=== PATIENT | male | born 1960 | race Caucasian/White ===

== ENCOUNTER 2016-10-27 15:12 | Emergency (ER) | payer OTHER ==
--- NOTE | 2016-10-27 16:25 | ED ---
General Adult HPI - General Chief complaint: Dizziness Stated complaint: dizziness-sent by Dr. Fernandes Seen by Provider: 10/27/16 16:24 Source: patient Mode of arrival: ambulatory Limitations: no limitations - History of Present Illness Initial comments: Meenu is a 56-year-old male who presents to the emergency department from his PCPs office for evaluation of dizzy spells and headaches which have been occurring intermittently for a number of years but have increased in frequency in the past 2 months. She reports that he has episodes in which she feels his vision changes, he loses his peripheral vision, he sometimes sees flashing lights, this can last seconds to minutes and is followed by the development of a severe headache. Patient reports that he used to have these episodes 2-4 times yearly however in the past 2 months he's been having these episodes at least weekly and sometimes more than once a week. She cannot identify any exacerbating or causative factors. He states that he is kept a log of his diet , sleep habits and the frequency of his headaches and has not found any correlation between what he eats or his sleep patterns in the development of headaches. Denies any chest pain, palpitations or shortness of breath during these episodes. Does report he occasionally has similar dizzy spells when he bends over and then stands but the spells are not followed by development of a headache. His primary care doctor today due to the increased frequency of the episodes. She performed an EKG and advised him to come to emergency department for a computed tomography scan of his head and to establish some baseline labs she can refer him to neurology for follow-up. - Related Data Home Medications Medication Instructions Recorded Confirmed No Known Home Medications [No 10/27/16 10/27/16 Known Home Medications] Allergies Allergy/AdvReac Type Severity Reaction Status Date / Time No Known Allergies Allergy Verified 02/06/14 13:52 Review of Systems ROS Statement: Those systems with pertinent positive or pertinent negative responses have been documented in the HPI. ROS Other: All systems not noted in ROS Statement are negative. Constitutional: Denies: fever, chills, weakness Eyes: Reports: vision change (Rashing lites and loss of peripheral vision prior to development of headaches) ENT: Denies: throat pain, hearing loss Respiratory: Denies: cough, dyspnea, wheezes Cardiovascular: Denies: chest pain, palpitations Endocrine: Denies: fatigue Gastrointestinal: Denies: nausea, vomiting Genitourinary: Denies: urgency, dysuria Musculoskeletal: Denies: back pain Skin: Denies: rash, lesions Neurological: Reports: headache, vertigo. Denies: numbness, paresthesias, confusion, abnormal gait Psychiatric: Denies: anxiety, depression Hematological/Lymphatic: Denies: easy bleeding, easy bruising Past Medical History Past Medical History: Coronary Artery Disease (CAD), Hypertension Additional Past Medical History / Comment(s): pacemaker History of Any Multi-Drug Resistant Organisms: None Reported Past Surgical History: Pacemaker Additional Past Surgical History / Comment(s): hand surgery, "steel plate in skull" Past Psychological History: Anxiety Smoking Status: Former smoker Past Alcohol Use History: None Reported Past Drug Use History: None Reported General Exam Limitations: no limitations General appearance: alert, in no apparent distress Head exam: Present: atraumatic, normocephalic, normal inspection Eye exam: Present: normal appearance ENT exam: Present: normal exam, mucous membranes moist Neck exam: Present: normal inspection. Absent: tenderness, meningismus, lymphadenopathy Respiratory exam: Present: normal lung sounds bilaterally. Absent: respiratory distress, wheezes, rales, rhonchi, stridor Cardiovascular Exam: Present: regular rate, normal rhythm, normal heart sounds, other (pacemaker palpable left anterior chest). Absent: systolic murmur, diastolic murmur, rubs, gallop, clicks GI/Abdominal exam: Present: soft, normal bowel sounds. Absent: distended, tenderness, guarding, rebound, rigid Rectal exam: Present: deferred Extremities exam: Present: normal inspection, full ROM, normal capillary refill. Absent: tenderness, pedal edema, joint swelling, calf tenderness Back exam: Present: normal inspection Neurological exam: Present: alert, oriented X3, CN II-XII intact, normal gait. Absent: motor sensory deficit Psychiatric exam: Present: normal affect, normal mood Skin exam: Present: warm, dry, intact, normal color. Absent: rash Course Vital Signs 10/27/16 10/27/16 10/27/16 15:27 18:12 18:56 Temperature 98.4 F 97.6 F 98.1 F Pulse Rate 65 67 Respiratory 17 18 16 Rate Blood Pressure 138/78 124/62 128/74 O2 Sat by Pulse 95 96 Oximetry 10/27/16 19:04 Temperature 98.1 F Pulse Rate 67 Respiratory 16 Rate Blood Pressure 128/74 O2 Sat by Pulse 96 Oximetry EKG Findings - EKG Comments: EKG Findings:: EKG at 16:56 PM. EKG rate is 65, rhythm is sinus, normal axis, normal intervals, AZ 170, QRS 96, QTC 426, no acute ST elevations or depressions. No evidence of acute ischemia or infarction or arrhythmia. Medical Decision Making - Medical Decision Making Patient was seen and evaluated Vital signs were reviewed History was obtained from the patient Patient has not had any symptoms in 3 days, is not acutely experiencing any symptoms that he does complain of a current headache which was not preceded by visual changes Labs, EKG and head CT were ordered Medications for migraine were ordered Labs and CT were unremarkable Patient reported significant improvement in his headache after medications Labs and CT results were discussed with the patient. Advised the patient that there were no acute findings requiring emergent intervention at this time, patient expressed relief at this and agreement with plan for discharge home and follow up with primary care which is already scheduled for early next week, his primary care physician is Jenna did discuss with him the intention to refer him to neurology for further evaluation of migraine headaches. All questions pertaining to there were answered to the best of my ability the patient was discharged home with plan to follow up with primary care next week or return to the emergency department for any acute worsening of his symptoms. - Lab Data Result diagrams: 10/27/16 17:00 10/27/16 17:00 Lab Results 10/27/16 10/27/16 10/27/16 Range/Units 17:00 17:00 17:00 WBC 8.8 (3.8-10.6) k/uL RBC 4.84 (4.30-5.90) m/uL Hgb 15.5 (13.0-17.5) gm/dL Hct 42.9 (39.0-53.0) % MCV 88.7 (80.0-100.0) fL MCH 32.0 (25.0-35.0) pg MCHC 36.1 (31.0-37.0) g/dL RDW 13.4 (11.5-15.5) % Plt Count 191 (150-450) k/uL Neutrophils % 67 % Lymphocytes % 23 % Monocytes % 6 % Eosinophils % 2 % Basophils % 1 % Neutrophils # 5.9 (1.3-7.7) k/uL Lymphocytes # 2.0 (1.0-4.8) k/uL Monocytes # 0.5 (0-1.0) k/uL Eosinophils # 0.2 (0-0.7) k/uL Basophils # 0.1 (0-0.2) k/uL PT 10.6 (9.0-12.0) sec INR 1.0 (<1.2) APTT 23.7 (22.0-30.0) sec Sodium 142 (137-145) mmol/L Potassium 3.8 (3.5-5.1) mmol/L Chloride 106 (98-107) mmol/L Carbon Dioxide 27 (22-30) mmol/L Anion Gap 9 mmol/L BUN 15 (9-20) mg/dL Creatinine 0.99 (0.66-1.25) mg/dL Est GFR (MDRD) Af Amer >60 (>60 ml/min/1.73 sqM) Est GFR (MDRD) Non-Af >60 (>60 ml/min/1.73 sqM) Glucose 117 H (74-99) mg/dL Calcium 8.9 (8.4-10.2) mg/dL Disposition Clinical Impression: Headache Disposition: HOME SELF-CARE Instructions: Migraine Headache (ED), Ocular Migraine (ED) Referrals: Ceci Dias MD [Primary Care Provider] - 1-2 days
[2016-10-27] MEDS ORDERED: DEXAMETHASONE SOD PHOSPHATE 10 MG/ML 1 ML VIAL IV STA (16:40)
[2016-10-27] MEDS ORDERED: METOCLOPRAMIDE 5 MG/ML 2 ML VIAL IVP STA (16:40)
[2016-10-27] MEDS ORDERED: diphenhydrAMINE 50 MG/ML 1 ML VIAL IVP STA (16:40)
[2016-10-27 17:19] LABS: Basophils # (A) 0.1 k/uL (0-0.2); Basophils % (A) 1 %; CH 32.2; CHCM 36.5; Eosinophils # (A) 0.2 k/uL (0-0.7); Eosinophils % (A) 2 %; HCT 42.9 % (39.0-53.0); HDW 2.99; HGB 15.5 gm/dL (13.0-17.5); Luc # (Auto) 0.16; Luc % (Auto) 2; Lymphocytes % (A) 23 %; MCHC 36.1 g/dL (31.0-37.0); MCV 88.7 fL (80.0-100.0); Monocytes # (A) 0.5 k/uL (0-1.0); Monocytes % (A) 6 %; Neutrophils # (A) 5.9 k/uL (1.3-7.7); Neutrophils % (A) 67 %; RBC 4.84 m/uL (4.30-5.90); RDW 13.4 % (11.5-15.5); WBC 8.8 k/uL (3.8-10.6); WBC (Perox) 8.31
[2016-10-27 17:24] LABS: Anion Gap 9 mmol/L; Blood Urea Nitrogen 15 mg/dL (9-20); Calcium 8.9 mg/dL (8.4-10.2); Carbon Dioxide 27 mmol/L (22-30); Chloride 106 mmol/L (98-107); Glucose 117 mg/dL (74-99); Non-African American GFR(MDRD) >60 (>60 ml/min/1.73 sqM); Partial Thromboplastin Time 23.7 sec (22.0-30.0); Potassium 3.8 mmol/L (3.5-5.1); Prothrombin Time 10.6 sec (9.0-12.0); Sodium 142 mmol/L (137-145)
--- NOTE | 2016-10-27 18:21 | CT ---
EXAMINATION TYPE: CT brain wo con DATE OF EXAM: 10/27/2016 COMPARISON: 06/12/2015 HISTORY: Dizziness x years. CT DLP: 1115.00 mGycm Automated exposure control for dose reduction was used. FINDINGS: There is no acute intracranial hemorrhage, mass effect, or midline shift identified. The ventricles and sulci are within normal limits in size. The globes are intact and the visualized sinuses are la nena ar. IMPRESSION: No acute intracranial hemorrhage, mass effect, or midline shift is seen.
[2016-10-27 18:57] VITALS: BP 128/74; PULSE 67; RESP 16; TEMP 98.1
== END 2016-10-27 19:04 | disposition home or self-care (01) ==
LOC: EC 15:12
DX: R51 Headache (principal); R42 Dizziness and giddiness; Z87.891 Personal history of nicotine dependence
CPT/HCPCS: 99284; 96374; 96375 ×2; 36415; 93005; 80048; 85025; 85610; 85730; 70450; J1200; J1100; J2765

== ENCOUNTER → 2016-11-27 | Outpatient (CLI) | payer OTHER ==
--- NOTE | 2016-11-27 19:07 | US ---
EXAMINATION TYPE: US carotid duplex BILAT DATE OF EXAM: 11/27/2016 COMPARISON: CT today and CTA 2012 CLINICAL HISTORY: E78.2 HYPERLIPIDEMIA R51. GANDHI R42. DIZZINESS; prior smoker EXAM MEASUREMENTS: RIGHT: Peak Systolic Velocity (PSV) cm/sec ----- Right CCA: 82.9 ----- Right ICA: 87.7 ----- Right ECA: 112.2 ICA/CCA ratio: 1.1 RIGHT: End Diastole cm/sec ----- Right CCA: 28.5 ----- Right ICA: 29.3 ----- Right ECA: 18.9 LEFT: Peak Systolic Velocity (PSV) cm/sec ----- Left CCA: 97.9 ----- Left ICA: 74.6 ----- Left ECA: 70.7 ICA/CCA ratio: 0.8 LEFT: End Diastole cm/sec ----- Left CCA: 26.7 ----- Left ICA: 16.3 ----- Left ECA: 11.1 VERTEBRALS (direction of flow): Right Vertebral: Antegrade Left Vertebral: Antegrade Mild intimal wall thickening is noted at bilateral carotid bifurcation and PSV is wnl bilaterally. Hi gh bifurcations are noted bilaterally. Incidentally, mixed, isoechoic left thyroid nodule is seen = 0 .6 x 0.5 x 0.6cm. IMPRESSION: There is antegrade flow in the vertebral arteries. The images and measurements suggest 1 0-20% stenosis in both internal carotid arteries. Criteria for Assigning % of Stenosis / Diameter reduction (Estimation based on the indirect measurements of the internal carotid artery velocities (ICA PSV). 1. Normal (no stenosis)=ICA PSV < 125 cm/s: ratio < 2.0: ICA EDV<40 cm/s. 2. Less than 50% stenosis=ICA PSV < 125 cm/s: ratio < 2.0: ICA EDV<40 cm/s. 3. 50 to 69% stenosis=ICA PSV of 125 to 230 cm/s: ration 2.0 ? 4.0: ICA EDV 40-100 cm/s. 4. Greater than 70% stenosis to near occlusion= ICA PSV > 230 cm/s: ratio > 4.0: ICA EDV > 100 cm/s. 5. Near occlusion= ICA PSV velocities may be low or undetectable: variable ratio and ICA EDV. 6. Total occlusion=unable to detect flow.
--- NOTE | 2016-11-27 21:21 | CT ---
EXAMINATION TYPE: CT angio head DATE OF EXAM: 11/27/2016 5:38 PM COMPARISON: NONE HISTORY: Patient complains of dizziness, lightheadedness, and fatigue. CT DLP: 932 mGycm Automated exposure control for dose reduction was used. TECHNIQUE: Performed with IV Contrast, patient injected with 100 mL of Omnipaque 350. There are 3-D post processed images.. FINDINGS: There is normal contrast opacification of the distal internal carotid arteries. There is arterial malissa w in the anterior middle and posterior cerebral arteries. There is bilateral posterior communicating artery flow. There is patency of the vertebrobasilar artery system. Right vertebral artery is larger than the left. There is no evidence of aneurysm or neovascularity. There is no evidence of stenosis. There is normal contrast opacification of the venous sinuses. There is no mass effect. IMPRESSION: NORMAL CT ANGIOGRAM OF THE BRAIN.
== END | disposition home or self-care (01) ==
LOC: RADCTMAIN 16:33
PROVIDERS: ATTEND Family Medicine
DX: R51 Headache (principal); R42 Dizziness and giddiness; E78.2 Mixed hyperlipidemia
CPT/HCPCS: 93880; 70496; Q9967

== ENCOUNTER → 2017-01-03 | Outpatient (CLI) | payer OTHER ==
--- NOTE | 2017-01-03 15:46 | US ---
EXAMINATION TYPE: US thyroid st tissue head/neck DATE OF EXAM: 01/03/2017 COMPARISON: NONE CLINICAL HISTORY: E04.1 Thyroid Nodule. GLAND SIZE: Right Lobe: 5.3 x 1.4 x 1.6 cm Overall Parenchyma: heterogenous Left Lobe: 4.8 x 1.4 x 1.7 cm Overall Parenchyma: heterogeneous Isthmus Thickness: 0.4 cm NODULES RIGHT: # of nodules measured on right: 0 LEFT: # of nodules measured on left: 1 1. 0.7 X 0.6 x 0.6 cm isoechoic solid nodule at the lower pole with well-defined margins; . This n odule is wider than tall and shows intranodular vascularity. Prior size: No previous ISTHMUS: # of nodules measured in the isthmus: 0 Bilateral neck scanned, no evidence of lymphadenopathy. IMPRESSION: 1. There is a single nodule within the left lobe of the thyroid measuring 7 mm. Tissue is somewhat he terogeneous correlate for thyroiditis.
== END | disposition home or self-care (01) ==
LOC: RADUSMAIN 15:12
PROVIDERS: ATTEND Family Medicine
DX: E04.1 Nontoxic single thyroid nodule (principal); E06.9 Thyroiditis, unspecified
CPT/HCPCS: 76536

== ENCOUNTER 2017-05-21 13:57 | Emergency (ER) | payer OTHER ==
--- NOTE | 2017-05-21 16:30 | ED ---
General Adult HPI - General Chief complaint: Extremity Problem,Nontraumatic Stated complaint: thumb swelling Time Seen by Provider: 05/21/17 16:02 Source: patient, RN notes reviewed Mode of arrival: ambulatory Limitations: no limitations - History of Present Illness Initial comments: 57-year-old male presents to the emergency department with a chief complaint of left thumb pain. Patient states she's had this for the past week or so. He states any movement causes pain sometimes it just shoot up. He states thatthe thumb. He denies any trauma or injury to the hand. He denies any redness. He states it does feel swollen and tender. He states he called his doctor was referred here. There's been no other symptoms and the patient. He is otherwise feeling well.Patient denies any recent fever, chills, shortness of breath, chest pain, back pain, abdominal pain, nausea vomiting, numbness or tingling, dysuria or hematuria, constipation or diarrhea, headaches or visual changes, or any other current symptoms. - Related Data Previous Rx's Medication Instructions Recorded Ibuprofen [Motrin] 600 mg PO Q6HR PRN #20 tab 05/21/17 Allergies Allergy/AdvReac Type Severity Reaction Status Date / Time No Known Allergies Allergy Verified 05/21/17 14:56 Review of Systems ROS Statement: Those systems with pertinent positive or pertinent negative responses have been documented in the HPI. ROS Other: All systems not noted in ROS Statement are negative. Past Medical History Past Medical History: Coronary Artery Disease (CAD), Hypertension Additional Past Medical History / Comment(s): pacemaker History of Any Multi-Drug Resistant Organisms: None Reported Past Surgical History: Pacemaker Additional Past Surgical History / Comment(s): hand surgery, "steel plate in skull" Past Psychological History: Anxiety Smoking Status: Former smoker Past Alcohol Use History: None Reported Past Drug Use History: None Reported General Exam - General Exam Comments Initial Comments: General: The patient is awake and alert, in no distress, and does not appear acutely ill. Neck: The neck is supple, there is no tenderness. Cardiovascular: There is a regular rate and rhythm. No murmur, rub or gallop is appreciated. Respiratory: Lungs are clear to auscultation, respirations are non-labored, breath sounds are equal. No wheezes, stridor, rales, or rhonchi. Musculoskeletal: Sensation intact with 2+ pulses throughout the left upper x- ray. Fund motion of left wrist and left hand. Tenderness alongthe left thumb. Minimal swelling no erythema. No fluctuance. Neurological: CN II-XII intact, There are no obvious motor or sensory deficits. Coordination appears grossly intact. Speech is normal. Skin: Skin is warm and dry and no rashes or lesions are noted. Psychiatric: Normal mood and affect. Limitations: no limitations Course Vital Signs 05/21/17 14:54 Temperature 98.4 F Pulse Rate 73 Respiratory 20 Rate Blood Pressure 140/93 O2 Sat by Pulse 98 Oximetry Medical Decision Making - Medical Decision Making 57-year-old male presents for left thumb pain. At this time x-rays reviewed. This time there does not appear to be in acute process. This elicits patient Motrin. We discussed possible etiologies importance of follow-up with hand surgery. We did give him hand surgery time as well as orthopedics on-call. We did discuss shelter. We discussed return parameters and all questions. They stated the Jerad management this plan. All questions have been answered. They will be discharged. - Radiology Data Radiology results: report reviewed, image reviewed Disposition Clinical Impression: Pain of left thumb Disposition: HOME SELF-CARE Condition: Stable Instructions: Finger Sprain (ED) Additional Instructions: Please use medication as discussed. Please follow up with family doctor if symptoms have not improved over the next two days. Please return to the emergency room if your symptoms increase or worsen or for any other concerns. Prescriptions: Ibuprofen [Motrin] 600 mg PO Q6HR PRN #20 tab PRN Reason: Pain Referrals: Ceci Dias MD [Primary Care Provider] - 1-2 days Sim Mark MD [STAFF PHYSICIAN] - 1-2 days Main Thomas DO [Doctor of Osteopathic Medicine] - 1-2 days Time of Disposition: 16:59
--- NOTE | 2017-05-21 16:31 | XR ---
EXAMINATION TYPE: XR hand complete LT DATE OF EXAM: 05/21/2017 CLINICAL HISTORY: pain TECHNIQUE: Frontal, lateral and oblique images of the left hand are obtained. COMPARISON: None. FINDINGS: There is no acute fracture/dislocation evident. The joint spaces appear within normal limi ts. The overlying soft tissue appears unremarkable. IMPRESSION: There is no acute fracture or dislocation. ICD 10 NO FRACTURE, INITIAL EVALUATION
[2017-05-21 17:24] VITALS: BP 132/75; PULSE 80; RESP 16; TEMP 98.7
== END 2017-05-21 17:20 | disposition home or self-care (01) ==
LOC: EC 13:57
DX: M79.645 Pain in left finger(s) (principal); M79.89 Other specified soft tissue disorders; Z87.891 Personal history of nicotine dependence
CPT/HCPCS: 99283

== ENCOUNTER 2017-09-06 15:04 | Emergency (ER) | payer OTHER ==
[2017-09-06 15:17] VITALS: BP 142/77; PULSE 73; RESP 16; TEMP 97.8
--- NOTE | 2017-09-06 15:32 | ED ---
General Adult HPI - General Chief complaint: ENT Stated complaint: Throat Pain Time Seen by Provider: 09/06/17 15:17 Source: patient, RN notes reviewed Mode of arrival: ambulatory Limitations: no limitations - History of Present Illness Initial comments: Patient's a 57-year-old male presenting to the emergency room today with chief complaint of irritation to the base of his throat. Patient states that it started 3 days ago felt similar to a sore throat but location seems to be deeper. He states that this feels a bit better but is not completely gone away and he is worried about it. Patient denies eating anything that seemed like it did not come down the right way. He does admit that it hurts when he swallows. He denies any difficulty swallowing or eating or drinking. He denies any any other complaints. Patient denies any recent fever, chills, shortness of breath, chest pain, back pain, abdominal pain, nausea or vomiting, numbness or tingling , headaches or visual changes, or any other complaints. - Related Data Previous Rx's Medication Instructions Recorded Ibuprofen [Motrin] 600 mg PO Q6HR PRN #20 tab 05/21/17 Allergies Allergy/AdvReac Type Severity Reaction Status Date / Time No Known Allergies Allergy Verified 09/06/17 15:17 Review of Systems ROS Statement: Those systems with pertinent positive or pertinent negative responses have been documented in the HPI. ROS Other: All systems not noted in ROS Statement are negative. Past Medical History Past Medical History: Coronary Artery Disease (CAD), Hypertension Additional Past Medical History / Comment(s): pacemaker History of Any Multi-Drug Resistant Organisms: None Reported Past Surgical History: Pacemaker Additional Past Surgical History / Comment(s): hand surgery, "steel plate in skull" Past Psychological History: Anxiety Smoking Status: Former smoker Past Alcohol Use History: None Reported Past Drug Use History: None Reported General Exam - General Exam Comments Initial Comments: General: The patient is awake and alert, in no distress, and does not appear acutely ill. Eye: Pupils are equal, round and reactive to light, extra-ocular movements are intact. No nystagmus. There is normal conjunctiva bilaterally. No signs of icterus. Ears, nose, mouth and throat: There are moist mucous membranes and no oral lesions. Uvula midline. Patient tolerating oral secretions Neck: The neck is supple, there is no tenderness or JVD. Cardiovascular: There is a regular rate and rhythm. No murmur, rub or gallop is appreciated. Respiratory: Lungs are clear to auscultation, respirations are non-labored, breath sounds are equal. No wheezes, stridor, rales, or rhonchi. Musculoskeletal: Normal ROM, no tenderness. Strength 5/5. Sensation intact. Neurological: A&O x 3. CN II-XII intact, There are no obvious motor or sensory deficits. Coordination appears grossly intact. Speech is normal. Skin: Skin is warm and dry and no rashes or lesions are noted. Psychiatric: Cooperative, appropriate mood & affect, normal judgment. Limitations: no limitations Course Vital Signs 09/06/17 15:15 Temperature 97.8 F Pulse Rate 73 Respiratory 16 Rate Blood Pressure 142/77 O2 Sat by Pulse 96 Oximetry Medical Decision Making - Medical Decision Making Patient's x-rays reviewed are negative. Patient's strep test negative as well. Patient tolerating oral secretions. Has been able eat and drink. Advised may be a viral illness possible gastric reflux. Patient advised follow-up with GI if symptoms persist over the next 2 days. Advised return if symptoms increase worsen. - Lab Data Lab Results 09/06/17 Range/Units 15:35 Group A Strep Rapid Negative (Negative) Disposition Clinical Impression: Sore throat Disposition: HOME SELF-CARE Condition: Good Instructions: Pharyngitis (ED) Additional Instructions: Please follow-up with the GI specialist over the next 2 days as discussed. Please return to emergency room symptoms increase worsen or for any other concerns Is patient prescribed a controlled substance at d/c from ED?: No Referrals: Ceci Dias MD [Primary Care Provider] - 1-2 days Rupesh Aragon MD [STAFF PHYSICIAN] - 1-2 days Time of Disposition: 16:07
--- NOTE | 2017-09-06 15:43 | XR ---
Soft tissue neck HISTORY: Sensation of something stuck in throat 2 views of the neck Degenerative disc changes are present in the visualized spine. Prevertebral soft tissues are normal. No radiopaque foreign body evident. Epiglottis shows a normal appearance in profile. Facet arthropath y changes are present in the cervical spine. Airway is patent. IMPRESSION: No abnormality evident to account for patient's symptoms. Consider CT scan as indicated.
== END 2017-09-06 16:13 | disposition home or self-care (01) ==
LOC: EC 15:04
DX: J02.9 Acute pharyngitis, unspecified (principal); Z87.891 Personal history of nicotine dependence
CPT/HCPCS: 70360; 87081; 87430; 99283

== ENCOUNTER 2019-02-11 14:20 | Emergency (ER) | payer OTHER ==
[2019-02-11 14:27] VITALS: BP 145/94; PULSE 66; RESP 18; TEMP 97.4
[2019-02-11] MEDS ORDERED: ACET/COD 300 MG/30 MG STARTER PACK 6 TAB BTL PO STA (14:41)
[2019-02-11] MEDS ORDERED: KETOROLAC 30 MG/ML 1 ML VIAL IM STA (14:41)
--- NOTE | 2019-02-11 14:54 | ED ---
General Adult HPI - General Chief complaint: Extremity Injury, Upper Stated complaint: IHS-Arm Injury Source: patient Mode of arrival: ambulatory Limitations: no limitations - History of Present Illness Initial comments: Patient is a 58-year-old male presenting to the emergency department with a chief complaint of left arm pain. Patient reports earlier today he was attempting to unload a ladder from a truck when he felt a pop in his left upper arm and developed severe shooting pain. Patient reports limited range of motion with flexion of the left elbow. Patient reports most of the pain is located near the anterior deltoid. Patient denies any numbness or tingling. Patient reports his bicep muscle and has "bubbled up." Patient reports taking [id number] medication minimal improvement. Patient denies any numbness or tingling. - Related Data Previous Rx's Medication Instructions Recorded Ibuprofen [Motrin] 600 mg PO Q6HR PRN #20 tab 05/21/17 Allergies Allergy/AdvReac Type Severity Reaction Status Date / Time No Known Allergies Allergy Verified 02/11/19 14:22 Review of Systems ROS Statement: Those systems with pertinent positive or pertinent negative responses have been documented in the HPI. ROS Other: All systems not noted in ROS Statement are negative. Past Medical History Past Medical History: Coronary Artery Disease (CAD), Hypertension Additional Past Medical History / Comment(s): pacemaker History of Any Multi-Drug Resistant Organisms: None Reported Past Surgical History: Pacemaker Additional Past Surgical History / Comment(s): hand surgery, "steel plate in skull" Past Psychological History: Anxiety Smoking Status: Former smoker Past Alcohol Use History: None Reported Past Drug Use History: None Reported General Exam Limitations: no limitations General appearance: alert, in no apparent distress Head exam: Present: atraumatic, normocephalic, normal inspection Eye exam: Present: normal appearance Pupils: Present: normal accommodation ENT exam: Present: normal exam, mucous membranes moist, normal external ear exam Neck exam: Present: normal inspection, full ROM Respiratory exam: Present: normal lung sounds bilaterally Cardiovascular Exam: Present: regular rate, normal rhythm, normal heart sounds Extremities exam: Present: tenderness (Point tenderness at the proximal rickey chment point of the left biceps tendon.), normal capillary refill, other (+2 ulnar and radial pulses bilaterally.). Absent: normal inspection ("Ball" formation along the anterior aspect of the left upper arm. ), full ROM (Limited range of motion with flexion of the left arm.) Back exam: Present: normal inspection, full ROM Neurological exam: Present: alert, oriented X3 Psychiatric exam: Present: normal affect, normal mood Skin exam: Present: warm, intact, normal color Course Vital Signs 02/11/19 14:22 Temperature 97.4 F L Pulse Rate 66 Respiratory 18 Rate Blood Pressure 145/94 O2 Sat by Pulse 99 Oximetry Medical Decision Making - Medical Decision Making Patient is a 58-year-old male presenting to the emergency department with a chief complaint of left arm pain. Based on physical examination patient appears to have a rupture of the proximal tendon of the left biceps. Patient also has point tenderness along the attachment point of the proximal bicep tendon. No im aging is required at this time. Patient given Toradol, Tylenol 3 starter pack for home. Patient advised about the possible side effects of the Tylenol 3. Patient given a sling. Patient advised to follow-up with orthopedics for further management. Strict return parameters were thoroughly discussed with patient was understanding and agreeable. Case discussed with physician. Disposition Clinical Impression: Rupture of proximal biceps tendon Disposition: HOME SELF-CARE Condition: Stable Instructions (If sedation given, give patient instructions): Repairs of the Biceps and Triceps Tendons (DC) Additional Instructions: Please follow with realty specialist. Please keep arm in a sling. Please take prescribed medication as directed. Is patient prescribed a controlled substance at d/c from ED?: No Referrals: Ceci Dias MD [Primary Care Provider] - 1-2 days Timmy Nazario MD [STAFF PHYSICIAN] - 1-2 days Time of Disposition: 14:57
== END 2019-02-11 15:01 | disposition home or self-care (01) ==
LOC: EC 14:20
DX: S46.212A Strain of muscle, fascia and tendon of other parts of biceps, left arm, initial encounter (principal); I25.10 Atherosclerotic heart disease of native coronary artery without angina pectoris; I10 Essential (primary) hypertension; Z95.0 Presence of cardiac pacemaker; Z87.891 Personal history of nicotine dependence; W22.8XXA Striking against or struck by other objects, initial encounter; Y93.89 Activity, other specified; Y99.0 Civilian activity done for income or pay
CPT/HCPCS: 99283; 96372; J1885

== ENCOUNTER → 2019-06-12 | Outpatient (CLI) | payer OTHER ==
[2019-06-12 17:03] LABS: Basophils % (A) 0 %; Eosinophils # (A) 0.2 k/uL (0-0.7); Eosinophils % (A) 2 %; HGB 16.4 gm/dL (13.0-17.5); Lymphocytes # (A) 2.3 k/uL (1.0-4.8); Lymphocytes % (A) 22 %; MCHC 34.8 g/dL (31.0-37.0); MCV 92.1 fL (80.0-100.0); Monocytes # (A) 0.6 k/uL (0-1.0); Monocytes % (A) 6 %; Neutrophils % (A) 68 %; Platelet Count 193 k/uL (150-450); RBC 5.11 m/uL (4.30-5.90); RDW 13.1 % (11.5-15.5); WBC 10.3 k/uL (3.8-10.6)
[2019-06-12 23:18] LABS: ALT 27 U/L (10-49); AST 32 U/L (14-35)
== END | disposition home or self-care (01) ==
LOC: LABWHC1 16:35
PROVIDERS: ATTEND Psychiatry & Neurology Neurology
DX: G43.109 Migraine with aura, not intractable, without status migrainosus (principal)
CPT/HCPCS: 36415; 84450; 84460; 85025

== ENCOUNTER 2019-09-01 08:04 | Emergency (ER) | payer OTHER ==
[2019-09-01 08:09] VITALS: BP 154/80; PULSE 60; RESP 18; TEMP 97.8
[2019-09-01] MEDS ORDERED: KETOROLAC 60 MG/2 ML VIAL IM STA (08:18)
--- NOTE | 2019-09-01 08:38 | ED ---
General Adult HPI - General Chief complaint: Chest Pain Stated complaint: rib pain Time Seen by Provider: 09/01/19 08:05 Source: patient, RN notes reviewed, old records reviewed Mode of arrival: ambulatory Limitations: no limitations - History of Present Illness Initial comments: This is a 59-year-old male who presents emergency Department complaining of right-sided rib pain. Patient states last night his 60 pound 9-year-old nephew jumped on his back when they were playing and ever since she's been having lateral right rib pain. Patient denies any difficulty breathing shortness of breath per patient states taking a deep breath or coughing makes the pain much worse. Patient denies any anterior chest pain. Patient denies any nausea patient denies any diaphoretic episodes. Patient states he lays still it doesn't hurt but if he touches it or takes a deep breath it is very painful. - Related Data Previous Rx's Medication Instructions Recorded Ibuprofen [Motrin] 600 mg PO Q6HR PRN #20 tab 05/21/17 Ketorolac [Toradol] 10 mg PO Q6HR #15 tab 09/01/19 Allergies Allergy/AdvReac Type Severity Reaction Status Date / Time No Known Allergies Allergy Verified 09/01/19 08:05 Review of Systems ROS Statement: Those systems with pertinent positive or pertinent negative responses have been documented in the HPI. ROS Other: All systems not noted in ROS Statement are negative. Past Medical History Past Medical History: Coronary Artery Disease (CAD), Hypertension Additional Past Medical History / Comment(s): pacemaker History of Any Multi-Drug Resistant Organisms: None Reported Past Surgical History: Pacemaker Additional Past Surgical History / Comment(s): hand surgery, "steel plate in skull" Past Psychological History: Anxiety Smoking Status: Former smoker Past Alcohol Use History: Occasional Past Drug Use History: None Reported General Exam - General Exam Comments Initial Comments: GENERAL: Patient is well-developed and well-nourished. Patient is nontoxic and well- hydrated and is in mild distress. ENT: Neck is soft and supple. No significant lymphadenopathy is noted. Oropharynx is clear. Moist mucous membranes. Neck has full range of motion without eliciting any pain. EYES: The sclera were anicteric and conjunctiva were pink and moist. Extraocular movements were intact and pupils were equal round and reactive to light. Eyelids were unremarkable. PULMONARY: Unlabored respirations. Good breath sounds bilaterally. No audible rales rhonchi or wheezing was noted. CARDIOVASCULAR: There is a regular rate and rhythm without any murmurs gallops or rubs. Patient's tender on the right lateral rib area between ribs 8 and 10 ABDOMEN: Soft and nontender with normal bowel sounds. SKIN: Skin is clear with no lesions or rashes and otherwise unremarkable. NEUROLOGIC: Patient is alert and oriented x3. Cranial nerves II through XII are grossly intact. Motor and sensory are also intact. Normal speech, volume and content. Symmetrical smile. MUSCULOSKELETAL: Normal extremities with adequate strength and full range of motion. No lower extremity swelling or edema. No calf tenderness. LYMPHATICS: No significant lymphadenopathy is noted PSYCHIATRIC: Normal psychiatric evaluation Limitations: no limitations Course Vital Signs 09/01/19 08:06 Temperature 97.8 F Pulse Rate 60 Respiratory 18 Rate Blood Pressure 154/80 O2 Sat by Pulse 97 Oximetry Medical Decision Making - Medical Decision Making Chest x-ray shows no rib fractures or pneumothorax. Disposition Clinical Impression: Rib pain on right side Disposition: HOME SELF-CARE Instructions (If sedation given, give patient instructions): Rib Contusion (ED) Prescriptions: Ketorolac [Toradol] 10 mg PO Q6HR #15 tab Is patient prescribed a controlled substance at d/c from ED?: No Referrals: Ceci Dias MD [Primary Care Provider] - 1-2 days Time of Disposition: 08:45
--- NOTE | 2019-09-01 08:45 | XR ---
EXAMINATION TYPE: XR chest 2V DATE OF EXAM: 09/01/2019 COMPARISON: Chest x-ray June 12, 2015. HISTORY: Chest and right-sided rib pain after injury. Difficulty in breathing. TECHNIQUE: Frontal and lateral views of the chest are obtained. FINDINGS: There is chronic parenchymal change without suspicious focal air space opacity, pleural ef fusion, or pneumothorax seen. The cardiac silhouette size is enlarged with dual lead pacemaker and a therosclerotic aorta. The osseous structures are intact. IMPRESSION: Chronic change and cardiomegaly without acute pulmonary process.
== END 2019-09-01 08:59 | disposition home or self-care (01) ==
LOC: EC 08:04
DX: R07.81 Pleurodynia (principal); R06.09 Other forms of dyspnea; I25.10 Atherosclerotic heart disease of native coronary artery without angina pectoris; Z87.891 Personal history of nicotine dependence; Z95.0 Presence of cardiac pacemaker
CPT/HCPCS: 71046; 99284; 96372; J1885

== ENCOUNTER 2020-02-20 11:19 | Observation (INO) | payer OTHER ==
[2020-02-20] MEDS ORDERED: IPRATROPIUM-ALBUTEROL 3 ML NEB INHALATION STA (12:41)
--- NOTE | 2020-02-20 13:24 | XR ---
EXAMINATION TYPE: XR chest 2V DATE OF EXAM: 02/20/2020 COMPARISON: R chest x-ray 09/01/2019 HISTORY: Difficulty breathing TECHNIQUE: Frontal and lateral views of the chest are obtained. FINDINGS: There is no focal air space opacity, pleural effusion, or pneumothorax seen. The cardiac silhouette size is within normal limits. The osseous structures are intact. IMPRESSION: No acute cardiopulmonary process. Stable chest x-ray
[2020-02-20 13:25] LABS: Basophils # (A) 0.1 k/uL (0-0.2); Basophils % (A) 1 %; Eosinophils # (A) 0.6 k/uL (0-0.7); Eosinophils % (A) 7 %; HCT 47.1 % (39.0-53.0); HGB 16.4 gm/dL (13.0-17.5); Lymphocytes # (A) 2.1 k/uL (1.0-4.8); Lymphocytes % (A) 24 %; MCH 32.8 pg (25.0-35.0); MCHC 34.7 g/dL (31.0-37.0); MCV 94.6 fL (80.0-100.0); Mean Platelet Volume 8.4; Monocytes # (A) 0.7 k/uL (0-1.0); Monocytes % (A) 8 %; Neutrophils # (A) 4.9 k/uL (1.3-7.7); Neutrophils % (A) 57 %; Platelet Count 178 k/uL (150-450); RBC 4.98 m/uL (4.30-5.90); RDW 12.7 % (11.5-15.5); WBC 8.5 k/uL (3.8-10.6)
[2020-02-20 13:35] LABS: ALT 27 U/L (4-49); AST 29 U/L (17-59); African American GFR (CKD) >90 (>60 ml/min/1.73 sqM); Albumin 4.4 g/dL (3.5-5.0); Alkaline Phosphatase 87 U/L (38-126); Anion Gap 6 mmol/L; Blood Urea Nitrogen 19 mg/dL (9-20); Calcium 9.2 mg/dL (8.4-10.2); Carbon Dioxide 24 mmol/L (22-30); Chloride 109 mmol/L (98-107); Glucose 107 mg/dL (74-99); Non-African American GFR(CKD) 85 (>60 ml/min/1.73 sqM); Potassium 4.2 mmol/L (3.5-5.1); Sodium 139 mmol/L (137-145); Total Bilirubin 0.5 mg/dL (0.2-1.3); Total Protein 6.9 g/dL (6.3-8.2)
[2020-02-20 13:40] LABS: INR 0.9 (<1.2); Partial Thromboplastin Time 24.2 sec (22.0-30.0); Prothrombin Time 9.8 sec (9.0-12.0)
[2020-02-20] MEDS ORDERED: methylPREDNISolone SOD SUCCI 125 MG/2 ML VIAL IV STA (16:08)
[2020-02-20] MEDS ORDERED: IPRATROPIUM-ALBUTEROL 3 ML NEB INHALATION PRN (16:08)
--- NOTE | 2020-02-20 16:11 | ED ---
General Adult HPI - General Chief complaint: Shortness of Breath Stated complaint: SOB, fever Time Seen by Provider: 02/20/20 12:20 Source: patient, RN notes reviewed, old records reviewed Mode of arrival: ambulatory Limitations: no limitations - History of Present Illness Initial comments: 59-year-old male patient with past medical history of coronary artery disease does have a pacemaker in place patient's ED for evaluation. Patient reports that for the last 3 weeks or so he has been getting progressively more short of breath. He notes that in particular when he lays down at night he becomes short of breath. Please had some chest tightness but denies any chest pain. She does have a history of smoking heart rate is no longer a smoker. He denies any other acute complaints at this time. Systemic: Pt denies fatigue, fever/chills, rash. Pt denies weakness, night sweats, weight loss. Neuro: Pt denies headache, visual disturbances, syncope or pre-syncope. HEENT: Pt denies ocular discharge or irritation, otalgia, rhinorrhea, pharyngitis or notable lymphadenopathy. Cardiopulmonary: Pt denies chest pain, heart palpitations, dyspnea on exertion. Abdominal/GI: Pt denies abdominal pain, n/v/d. : Pt denies dysuria, burning w/ urination, frequency/urgency. Denies new onset urinary or bowel incontinence. MSK: Pt denies myalgia, loss of strength or function in extremities. Neuro: Pt denies new onset weakness, paresthesias. - Related Data Previous Rx's Medication Instructions Recorded Ibuprofen [Motrin] 600 mg PO Q6HR PRN #20 tab 05/21/17 Ketorolac [Toradol] 10 mg PO Q6HR #15 tab 09/01/19 Allergies Allergy/AdvReac Type Severity Reaction Status Date / Time No Known Allergies Allergy Verified 02/20/20 11:41 Review of Systems ROS Statement: Those systems with pertinent positive or pertinent negative responses have been documented in the HPI. ROS Other: All systems not noted in ROS Statement are negative. Past Medical History Past Medical History: Coronary Artery Disease (CAD), Hypertension Additional Past Medical History / Comment(s): pacemaker History of Any Multi-Drug Resistant Organisms: None Reported Past Surgical History: Pacemaker Additional Past Surgical History / Comment(s): hand surgery, "steel plate in skull" Past Psychological History: Anxiety Smoking Status: Current some day smoker Past Alcohol Use History: Occasional Past Drug Use History: None Reported General Exam - General Exam Comments Initial Comments: Constitutional: NAD, AOX3, Pt has pleasant affect. HEENT: NC/AT, trachea midline, neck supple, no lymphadenopathy. External ears appear normal, without discharge. Mucous membranes moist. Eyes PERRLA, EOM intact. There is no scleral icterus. No pallor noted. Cardiopulmonary: RRR, no murmurs, rubs or gallops, no JVD noted. Mild wheezing in anterior lung field, resolved after breathing treatment. No peripheral edema. Abdominal exam: Abdomen soft and non-distended. Abdomen non-tender to palpation in all 4 quadrants. Bowel sounds active in LLQ. No hepatosplenomegaly. No ecchymosis Neuro: CN II-XII grossly intact. No nuchal rigidity. MSK: No posterior calf tenderness bilaterally, homans sign negative bilaterally. Posterior tibialis and radial pulse +2 bilaterally. Sensation intact in upper and lower extremities. Full active ROM in upper and lower extremities, 5/5 stregnth. Limitations: no limitations Course Vital Signs 02/20/20 02/20/20 02/20/20 11:39 13:45 14:01 Temperature 98.5 F Pulse Rate 72 76 84 Respiratory 20 Rate Blood Pressure 133/85 O2 Sat by Pulse 98 Oximetry Medical Decision Making - Medical Decision Making 59-year-old male patient with past medical history of coronary artery disease does have a pacemaker in place patient's ED for evaluation. Patient reports that for the last 3 weeks or so he has been getting progressively more short of breath. He notes that in particular when he lays down at night he becomes short of breath. Please had some chest tightness but denies any chest pain. She does have a history of smoking heart rate is no longer a smoker. He denies any other acute complaints at this time. Patient vital signs are stable, afebrile. His exams below the wheezing resolved after breathing treatment. Troponin is negative. D-dimer is negative. chest x-ray negative for acute cardiopulmonary process. EKG is nonischemic. I believe there is a component of COPD, administered steroids, breathing treatment. Patient will be admitted for further evaluation of his shortness of breath. Case discussed with Dr. Nuno. - Lab Data Result diagrams: 02/20/20 12:41 02/20/20 12:41 Lab Results 02/20/20 02/20/20 02/20/20 Range/Units 12:41 12:41 12:41 WBC 8.5 (3.8-10.6) k/uL RBC 4.98 (4.30-5.90) m/uL Hgb 16.4 (13.0-17.5) gm/dL Hct 47.1 (39.0-53.0) % MCV 94.6 (80.0-100.0) fL MCH 32.8 (25.0-35.0) pg MCHC 34.7 (31.0-37.0) g/dL RDW 12.7 (11.5-15.5) % Plt Count 178 (150-450) k/uL Neutrophils % 57 % Lymphocytes % 24 % Monocytes % 8 % Eosinophils % 7 % Basophils % 1 % Neutrophils # 4.9 (1.3-7.7) k/uL Lymphocytes # 2.1 (1.0-4.8) k/uL Monocytes # 0.7 (0-1.0) k/uL Eosinophils # 0.6 (0-0.7) k/uL Basophils # 0.1 (0-0.2) k/uL PT 9.8 (9.0-12.0) sec INR 0.9 (<1.2) APTT 24.2 (22.0-30.0) sec D-Dimer (<0.60) mg/L FEU Sodium 139 (137-145) mmol/L Potassium 4.2 (3.5-5.1) mmol/L Chloride 109 H (98-107) mmol/L Carbon Dioxide 24 (22-30) mmol/L Anion Gap 6 mmol/L BUN 19 (9-20) mg/dL Creatinine 0.98 (0.66-1.25) mg/dL Est GFR (CKD-EPI)AfAm >90 (>60 ml/min/1.73 sqM) Est GFR (CKD-EPI)NonAf 85 (>60 ml/min/1.73 sqM) Glucose 107 H (74-99) mg/dL Calcium 9.2 (8.4-10.2) mg/dL Total Bilirubin 0.5 (0.2-1.3) mg/dL AST 29 (17-59) U/L ALT 27 (4-49) U/L Alkaline Phosphatase 87 (38-126) U/L Troponin I (0.000-0.034) ng/mL NT-Pro-B Natriuret Pep pg/mL Total Protein 6.9 (6.3-8.2) g/dL Albumin 4.4 (3.5-5.0) g/dL Coronavirus (PCR) (Not Detectd) 02/20/20 02/20/20 02/20/20 Range/Units 12:41 12:41 12:41 WBC (3.8-10.6) k/uL RBC (4.30-5.90) m/uL Hgb (13.0-17.5) gm/dL Hct (39.0-53.0) % MCV (80.0-100.0) fL MCH (25.0-35.0) pg MCHC (31.0-37.0) g/dL RDW (11.5-15.5) % Plt Count (150-450) k/uL Neutrophils % % Lymphocytes % % Monocytes % % Eosinophils % % Basophils % % Neutrophils # (1.3-7.7) k/uL Lymphocytes # (1.0-4.8) k/uL Monocytes # (0-1.0) k/uL Eosinophils # (0-0.7) k/uL Basophils # (0-0.2) k/uL PT (9.0-12.0) sec INR (<1.2) APTT (22.0-30.0) sec D-Dimer 0.23 (<0.60) mg/L FEU Sodium (137-145) mmol/L Potassium (3.5-5.1) mmol/L Chloride (98-107) mmol/L Carbon Dioxide (22-30) mmol/L Anion Gap mmol/L BUN (9-20) mg/dL Creatinine (0.66-1.25) mg/dL Est GFR (CKD-EPI)AfAm (>60 ml/min/1.73 sqM) Est GFR (CKD-EPI)NonAf (>60 ml/min/1.73 sqM) Glucose (74-99) mg/dL Calcium (8.4-10.2) mg/dL Total Bilirubin (0.2-1.3) mg/dL AST (17-59) U/L ALT (4-49) U/L Alkaline Phosphatase (38-126) U/L Troponin I <0.012 (0.000-0.034) ng/mL NT-Pro-B Natriuret Pep 63 pg/mL Total Protein (6.3-8.2) g/dL Albumin (3.5-5.0) g/dL Coronavirus (PCR) (Not Detectd) 02/20/20 Range/Units 12:42 WBC (3.8-10.6) k/uL RBC (4.30-5.90) m/uL Hgb (13.0-17.5) gm/dL Hct (39.0-53.0) % MCV (80.0-100.0) fL MCH (25.0-35.0) pg MCHC (31.0-37.0) g/dL RDW (11.5-15.5) % Plt Count (150-450) k/uL Neutrophils % % Lymphocytes % % Monocytes % % Eosinophils % % Basophils % % Neutrophils # (1.3-7.7) k/uL Lymphocytes # (1.0-4.8) k/uL Monocytes # (0-1.0) k/uL Eosinophils # (0-0.7) k/uL Basophils # (0-0.2) k/uL PT (9.0-12.0) sec INR (<1.2) APTT (22.0-30.0) sec D-Dimer (<0.60) mg/L FEU Sodium (137-145) mmol/L Potassium (3.5-5.1) mmol/L Chloride (98-107) mmol/L Carbon Dioxide (22-30) mmol/L Anion Gap mmol/L BUN (9-20) mg/dL Creatinine (0.66-1.25) mg/dL Est GFR (CKD-EPI)AfAm (>60 ml/min/1.73 sqM) Est GFR (CKD-EPI)NonAf (>60 ml/min/1.73 sqM) Glucose (74-99) mg/dL Calcium (8.4-10.2) mg/dL Total Bilirubin (0.2-1.3) mg/dL AST (17-59) U/L ALT (4-49) U/L Alkaline Phosphatase (38-126) U/L Troponin I (0.000-0.034) ng/mL NT-Pro-B Natriuret Pep pg/mL Total Protein (6.3-8.2) g/dL Albumin (3.5-5.0) g/dL Coronavirus (PCR) Not Detected (Not Detectd) - EKG Data -: EKG Interpreted by Me (and Dr. Nuno ) EKG Comments: ventricular rate 69, IN interval 150, QRS 88, QT/QTC 386/413. Normal sinus rhythm, normal EKG, no concern for acute ischemia at this time. Disposition Clinical Impression: History of orthopnea, Dyspnea Disposition: ADMITTED IP TO THIS HOSP Condition: Serious Is patient prescribed a controlled substance at d/c from ED?: No Referrals: Ceci Dias MD [Primary Care Provider] - 1-2 days
[2020-02-20] MEDS ORDERED: NITROGLYCERIN SL TABS 0.4 MG TAB SUBLINGUAL PRN (16:13)
--- NOTE | 2020-02-20 18:00 | ECHOF ---
Referral Reason:dyspnea MEASUREMENTS -------- HEIGHT: 177.8 cm WEIGHT: 99.8 kg BP: IVSd: 1.0 cm (0.6 - 1.1) LVIDd: 4.6 cm (3.9 - 5.3) LVPWd: 1.4 cm (0.6 - 1.1) IVSs: 2.1 cm LVIDs: 2.1 cm LVPWs: 2.1 cm LAESV Index (A-L): 26.55 ml/m Ao Diam: 4.1 cm (2.0 - 3.7) AV Cusp: 1.1 cm (1.5 - 2.6) LA Diam: 2.1 cm (2.7 - 3.8) MV EXCURSION: 16.659 mm (> 18.000) MV EF SLOPE: 93 mm/s (70 - 150) EPSS: 2.0 cm MV E Saleem: 0.66 m/s MV DecT: 243 ms MV A Saleem: 0.88 m/s MV E/A Ratio: 0.75 AV maxP.31 mmHg AV meanP.52 mmHg RAP: 5.00 mmHg RVSP: 23.93 mmHg FINDINGS -------- Pacerwire seen in RV and RA. This was a technically good study. The left ventricular size is normal. There is mild concentric left ventricular hypertrophy. Overa ll left ventricular systolic function is normal with, an EF between 55 - 60 %. The right ventricle is normal in size. The left atrial size is normal. The right atrial size is normal. There is moderate aortic stenosis present. Peak/mean gradient across the Aortic Valve is 34.31mmHg / 20.52mmHg. Aortic valve is functionally bicuspid and is moderately thickened. AOV opens Bicuspi d. The mitral valve is normal. The mitral valve leaflets are mildly thickened. Mild mitral regurgita tion is present. The tricuspid valve appears structurally normal. Mild tricuspid regurgitation present. Right vent ricular systolic pressure is normal at < 35 mmHg. There is no pulmonic regurgitation present. The aortic root is dilated measuring 4.1 cm Normal inferior vena cava with normal inspiratory collapse consistent with estimated right atrial pre ssure of 5 mmHg. There is no pericardial effusion. CONCLUSIONS -------- 1. Pacerwire seen in RV and RA. 2. The left ventricular size is normal. 3. There is mild concentric left ventricular hypertrophy. 4. Overall left ventricular systolic function is normal with, an EF between 55 - 60 %. 5. There is moderate aortic stenosis present. 6. Peak/mean gradient across the Aortic Valve is 34.31mmHg / 20.52mmHg. 7. Aortic valve is functionally bicuspid and is moderately thickened. 8. AOV opens Bicuspid. 9. The mitral valve leaflets are mildly thickened. 10. Mild tricuspid regurgitation present. 11. The aortic root is dilated measuring 4.1 cm 12. There is no pericardial effusion. POWER DISTRIBUTION ENGINEER: Chasity Sorto RDCS
[2020-02-20] MEDS ORDERED: TEMAZEPAM 15 MG CAP PO PRN (21:07)
[2020-02-20] MEDS ORDERED: ALPRAZolam 0.25 MG TAB PO PRN (21:07)
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
[2020-02-20] MEDS: INSULIN ASPART (NovoLOG) 100 UNIT/ML VIAL SQ SCH (23:04)
[2020-02-20] MEDS: methylPREDNISolone SOD SUCCI 125 MG/2 ML VIAL IV SCH (23:13)
[2020-02-20 23:40] LABS: Appearance,Urine Clear (Clear); Bilirubin,Urine Negative (Negative); Blood,Urine Negative (Negative); Color,Urine Light Yellow; Glucose,Urine (UA) Negative (Negative); Ketones,Urine Negative (Negative); Leukocyte Esterase,Urine Negative (Negative); Nitrite,Urine Negative (Negative); PH, Urine 5.5 (5.0-8.0); Protein,Urine Negative (Negative); Specific Gravity,Urine 1.018 (1.001-1.035); Urobilinogen,Urine <2.0 mg/dL (<2.0)
[2020-02-20 23:48] LABS: Amphetamine Screen,Urine Not Detected (NotDetected); Barbiturate Screen,Urine Not Detected (NotDetected); Benzodiazepines Screen,Urine Not Detected (NotDetected); Cocaine Screen,Urine Not Detected (NotDetected); Methadone Screen, Urine Not Detected (NotDetected); Opiate Screen,Urine Not Detected (NotDetected); Oxycodone Screen, Urine Not Detected (NotDetected); Phencyclidine Screen,Urine Not Detected (NotDetected); Tricyclic Antidepressant,Urine Not Detected (NotDetected); Urn Cannabinoid Scrn Detected (NotDetected)
[2020-02-21] MEDS: methylPREDNISolone SOD SUCCI 125 MG/2 ML VIAL IV SCH ×2 (05:41→13:10)
[2020-02-21 06:25] LABS: Glucose,Whole Blood 139 mg/dL (75-99)
[2020-02-21] MEDS: INSULIN ASPART (NovoLOG) 100 UNIT/ML VIAL SQ SCH ×2 (06:56→13:10)
[2020-02-21 07:50] LABS: Basophils % (A) 0 %; Eosinophils % (A) 0 %; HCT 48.6 % (39.0-53.0); HGB 16.8 gm/dL (13.0-17.5); Lymphocytes # (A) 1.3 k/uL (1.0-4.8); Lymphocytes % (A) 7 %; MCH 32.8 pg (25.0-35.0); MCHC 34.5 g/dL (31.0-37.0); Mean Platelet Volume 8.5; Monocytes # (A) 0.1 k/uL (0-1.0); Monocytes % (A) 1 %; Neutrophils # (A) 17.8 k/uL (1.3-7.7); Neutrophils % (A) 92 %; Platelet Count 196 k/uL (150-450); RBC 5.12 m/uL (4.30-5.90); RDW 12.5 % (11.5-15.5); WBC 19.3 k/uL (3.8-10.6)
[2020-02-21] MEDS: ASPIRIN 325 MG TAB PO SCH (08:29)
[2020-02-21] MEDS: HEPARIN SODIUM,PORCINE 5,000 UNIT/ML 1 ML VIAL SQ SCH ×2 (08:30→20:28)
[2020-02-21 08:39] LABS: African American GFR (CKD) >90 (>60 ml/min/1.73 sqM); Anion Gap 10 mmol/L; Blood Urea Nitrogen 17 mg/dL (9-20); Calcium 9.2 mg/dL (8.4-10.2); Carbon Dioxide 22 mmol/L (22-30); Chloride 106 mmol/L (98-107); Cholesterol 257 mg/dL (<200); Glucose 152 mg/dL (74-99); HDL Cholesterol 56 mg/dL (40-60); LDL Cholesterol,Calculated 188 mg/dL (0-99); Non-African American GFR(CKD) >90 (>60 ml/min/1.73 sqM); Potassium 4.2 mmol/L (3.5-5.1); Sodium 138 mmol/L (137-145); Triglycerides 65 mg/dL (<150)
[2020-02-21] MEDS: IPRATROPIUM-ALBUTEROL 3 ML NEB INHALATION SCH ×4 (08:39→19:04)
[2020-02-21] MEDS ORDERED: AZITHROMYCIN 500 MG in SODIUM CHLORIDE 0.9% 250 ML IVPB SCH (09:00)
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
[2020-02-21] MEDS: ACETAMINOPHEN TAB 500 MG TAB PO PRN ×2 (09:57→20:28)
--- NOTE | 2020-02-21 10:33 | CT ---
EXAMINATION TYPE: CT chest wo con DATE OF EXAM: 02/21/2020 COMPARISON: Chest radiograph 02/20/2020. HISTORY: Orthopnea with negative d dimer CT DLP: 830.8 mGycm Automated exposure control for dose reduction was used. CONTRAST: High-resolution axial CT scan of the chest is performed without intravenous contrast, and prone and s upine position. FINDINGS: LUNGS: Lungs are grossly clear. No concerning parenchymal mass. No fibrosis or interstitial lung dise ase changes. No pleural effusion. No pneumothorax. The tracheobronchial tree is patent. MEDIASTINUM/SOFT TISSUES: No axillary, hilar, or mediastinal lymphadenopathy greater than 1 cm. Left- sided cardiac pacemaker. Cardiac size is normal. No pericardial effusion. Ascending thoracic aortic e ctasia measures up to 3.6 cm. Pulmonary vasculature is normal. UPPER ABDOMEN: No adrenal nodule. OSSEOUS: Degenerative changes of the spine. IMPRESSION: No significant interstitial lung disease, pulmonary edema, atelectasis, or air trapping.
[2020-02-21 12:09] LABS: Glucose,Whole Blood 255 mg/dL (75-99)
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
[2020-02-21 15:10] VITALS: RESP 18
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
[2020-02-22 06:55] LABS: Basophils # (A) 0.1 k/uL (0-0.2); Basophils % (A) 1 %; Eosinophils # (A) 0.2 k/uL (0-0.7); Eosinophils % (A) 1 %; HCT 44.1 % (39.0-53.0); HGB 14.9 gm/dL (13.0-17.5); Lymphocytes # (A) 1.5 k/uL (1.0-4.8); Lymphocytes % (A) 6 %; MCH 32.7 pg (25.0-35.0); MCHC 33.9 g/dL (31.0-37.0); MCV 96.4 fL (80.0-100.0); Mean Platelet Volume 8.8; Monocytes # (A) 1.2 k/uL (0-1.0); Monocytes % (A) 5 %; Neutrophils # (A) 20.9 k/uL (1.3-7.7); Neutrophils % (A) 87 %; Platelet Count 191 k/uL (150-450); RBC 4.57 m/uL (4.30-5.90); RDW 12.8 % (11.5-15.5); WBC 24.1 k/uL (3.8-10.6)
[2020-02-22 07:06] LABS: African American GFR (CKD) >90 (>60 ml/min/1.73 sqM); Anion Gap 5 mmol/L; Blood Urea Nitrogen 21 mg/dL (9-20); Calcium 8.7 mg/dL (8.4-10.2); Carbon Dioxide 23 mmol/L (22-30); Chloride 110 mmol/L (98-107); Glucose 140 mg/dL (74-99); Non-African American GFR(CKD) >90 (>60 ml/min/1.73 sqM); Potassium 4.1 mmol/L (3.5-5.1); Sodium 138 mmol/L (137-145)
[2020-02-22] MEDS: HEPARIN SODIUM,PORCINE 5,000 UNIT/ML 1 ML VIAL SQ SCH (08:34)
[2020-02-22] MEDS: ASPIRIN 325 MG TAB PO SCH (08:34)
[2020-02-22] MEDS ORDERED: AZITHROMYCIN 500 MG in SODIUM CHLORIDE 0.9% 250 ML IVPB SCH (09:00)
[2020-02-22] MEDS: IPRATROPIUM-ALBUTEROL 3 ML NEB INHALATION SCH ×2 (09:04→12:22)
[2020-02-22 09:41] VITALS: BP 132/72; PULSE 74; TEMP 97.5
--- NOTE | 2020-02-22 10:35 | P.PN ---
Subjective Progress Note Date: 02/22/20 History of present illness: This is a 59-year-old male patient of with past medical history of a pacemaker placement 2012 due to bradycardia. Patient has known aortic stenosis that is being monitored. Patient states that he had bronchitis 2 months ago was feeling better until last week and became much worse on at 6 PM. He complains of shortness of breath as well as clear sputum production. He states he was unable to lay flat because he was continuously coughing and wheezing. On Sunday he called his PCP and was told to come in the hospital for evaluation. At the time of this evaluation, patient states he has significant only better and he typically does much better during the day. He currently has minimal cough. His symptoms are improved after steroids and nebulizer treatment. Initial vital signs blood pressure 133/85, heart rate 72, afebrile. chest x-rays shows no acute cardio pulmonary process. EKG sinus rhythm with no acute ST changes.echocardiogram reveals EF of 55-60%, moderate aortic stenosis with gradient of 34.31, bicuspid. Mild tricuspid regurgitation, aortic root is dilated measuring 4.1 cm. CBC was unremarkable.d-dimer 0.23. CMP unrem arkable.proBNP 63. Blood [id number]. Troponin negative on 3 draws. Triglycerides 65, cholesterol 257, LDL 188, HDL 56. CT of the chest is in progress. Coronavirus not detected. Urine drug screen positive for marijuana. Patient quit smoking 10 years ago. 02/21: CAT scan of the chest showed no significant interstitial lung disease, pulmonary edema, atelectasis or air trapping. Patient states that his shortness of breath and cough is significantly improved with nebulizer treatments and steroids. He is followed by pulmonary medicine. He denies having any chest pain. Physical examination: Gen: This is a a 59-year-old male. He is resting in bed and appears to be comfortable and in no acute distress. VS: afebrile, heart rate 74, blood pressure 132/72, pulse ox 94% on room air. HEENT: Head is atraumatic, normocephalic. Pupils equal, round. Sclerae is anicteric. NECK: Supple. No JVD. No lymphadenopathy. No thyromegaly. LUNGS: Clear to auscultation. No wheezes or rhonchi. No intercostal retractions. HEART: Regular rate and rhythm. Systolic murmur. ABDOMEN: Soft. Bowel sounds are present. No masses. No tenderness. EXTREMITIES: No pedal edema. No calf tenderness. NEUROLOGICAL: Patient is awake, alert and oriented x3. Cranial nerves 2 through 12 are grossly intact. Assessment: Shortness of breath and cough secondary to possible bronchitis, followed by pulmonary medicine Exertional dyspnea possibly secondary to moderate aortic stenosis, monitored as an outpatient Negative troponins, acute coronary syndrome ruled out Hypertension Plan: agree with consult for cardiothoracic surgery evaluation, no plan for intervention Patient will follow up in the office with Dr. Jose at the time of discharge Patient is cleared for discharge from cardiology. We will follow on an as- needed basis. Please reconsult if any new concerns. Thank you kindly for this consultation. Nurse practitioner note has been reviewed, I agree with documented findings and plan of care. Patient was seen and examined. Objective - Vital Signs Vital signs: Vital Signs Temp 97.5 F L 02/22/20 09:00 Pulse 74 02/22/20 09:00 Resp 18 02/22/20 09:00 BP 132/72 02/22/20 09:00 Pulse Ox 94 L 02/22/20 09:00 Intake & Output 02/21/20 02/22/20 02/22/20 18:59 06:59 18:59 Intake Total 1000 300 Balance 1000 300 Intake: Oral 1000 300 Other: Voiding Method Toilet Toilet Toilet # Voids 2 2 2 - Labs CBC & Chem 7: 02/22/20 06:21 02/22/20 06:21 Labs: Abnormal Lab Results - Last 24 Hours (Table) 02/21/20 02/22/20 02/22/20 Range/Units 12:07 06:21 06:21 WBC 24.1 H (3.8-10.6) k/uL Neutrophils # 20.9 H (1.3-7.7) k/uL Monocytes # 1.2 H (0-1.0) k/uL Chloride 110 H (98-107) mmol/L BUN 21 H (9-20) mg/dL Glucose 140 H (74-99) mg/dL POC Glucose (mg/dL) 255 H (75-99) mg/dL
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
== END 2020-02-22 12:56 | disposition home or self-care (01) ==
LOC: EC 11:19 → 3NCARDOBS 15:53
PROVIDERS: ADMIT Hospitalist; ATTEND Hospitalist
DX: I08.3 Combined rheumatic disorders of mitral, aortic and tricuspid valves (principal); Q23.1 Congenital insufficiency of aortic valve; Z95.0 Presence of cardiac pacemaker; I25.10 Atherosclerotic heart disease of native coronary artery without angina pectoris; I10 Essential (primary) hypertension; F41.9 Anxiety disorder, unspecified; Z87.891 Personal history of nicotine dependence; M19.90 Unspecified osteoarthritis, unspecified site; Z20.828 Contact with and (suspected) exposure to other viral communicable diseases; Z96.7 Presence of other bone and tendon implants; Z80.8 Family history of malignant neoplasm of other organs or systems; Z82.61 Family history of arthritis; Z87.81 Personal history of (healed) traumatic fracture; Z79.1 Long term (current) use of non-steroidal anti-inflammatories (NSAID)
CPT/HCPCS: 93005 ×2; 96365; 96366; 96367; 96372 ×2; 96376 ×2; 96375; 99285; 36415; 94640 ×3; 94760; 93306; 85379; 83880; 80061; 80053; 80048 ×2; 85652; 84484; 85025 ×3; 85610; 85730; 86140; 81003; 80306; 87635; 71046; 71250; G0378 ×3; U0003; J1644 ×2; J2930 ×2; J0456 ×2; J0696 ×2

== ENCOUNTER 2020-03-10 19:34 | Emergency (ER) | payer OTHER ==
[2020-03-10 19:52] VITALS: PULSE 69
--- NOTE | 2020-03-10 21:06 | XR ---
EXAMINATION TYPE: XR lumbar spine 2 or 3V DATE OF EXAM: 03/10/2020 COMPARISON: 08/10/2015 HISTORY: Back pain TECHNIQUE: 3 views FINDINGS: Vertebra have normal alignment. There is narrowing of L4-5 and L5-S1 disc spaces with spur formation. Sacroiliac joints are intact. There is no compression fracture. IMPRESSION: Mild spondylotic changes in the lower lumbar spine unchanged compared to old exam. No fra cture.
--- NOTE | 2020-03-10 21:07 | XR ---
EXAMINATION TYPE: XR thoracic spine 2V DATE OF EXAM: 03/10/2020 COMPARISON: Chest x-ray 02/20/2020 HISTORY: Back pain. Pain after falling. TECHNIQUE: 3 views FINDINGS: The thoracic vertebra have normal alignment. There is mild narrowing of disc spaces. There is no compression fracture. There is mild spurring of the endplates. IMPRESSION: No fracture seen. Mild degenerative spurring. No change compared to old chest x-ray.
[2020-03-10] MEDS ORDERED: IBUPROFEN 800 MG TAB PO STA (22:15)
[2020-03-10] MEDS ORDERED: HYDROmorphone 1 MG/ML 1 ML SYRINGE IM STA (22:15)
[2020-03-10] MEDS ORDERED: dexAMETHasone 4 MG TAB PO STA (22:15)
[2020-03-10] MEDS ORDERED: ACET/COD 300 MG/30 MG STARTER PACK 6 TAB BTL PO STA (22:22)
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
[2020-03-10 22:51] VITALS: BP 159/90; RESP 18; TEMP 98
== END 2020-03-10 22:52 | disposition home or self-care (01) ==
LOC: EC 19:34
DX: S30.0XXA Contusion of lower back and pelvis, initial encounter (principal); F17.200 Nicotine dependence, unspecified, uncomplicated; W10.9XXA Fall (on) (from) unspecified stairs and steps, initial encounter; Y92.009 Unspecified place in unspecified non-institutional (private) residence as the place of occurrence of the external cause
CPT/HCPCS: 72070; 72100; 99284; 96372; J8540; J1170

== ENCOUNTER → 2020-03-16 | Outpatient (CLI) | payer OTHER ==
--- NOTE | 2020-03-16 14:51 | CT ---
EXAMINATION TYPE: CT thor lumbar spine wo con DATE OF EXAM: 03/16/2020 COMPARISON: CT lumbar spine October 04, 2015. Thoracic and lumbar spine x-rays March 10, 2020. HISTORY: back pain post fall injury CT DLP: 1802.2 mGycm Automated exposure control for dose reduction was used. FINDINGS: There are 5 lumbar type vertebra redemonstrated. Thoracolumbar spine show satisfactory alignment with out evidence of acute fracture or dislocation. Spinal canal is preserved. There is moderate multileve l anterior and lateral spurring in the mid to lower thoracic spine. Multilevel disc calcification is seen in the mid thoracic spine. Multilevel spinous process hypertrophy. There is redemonstration of posterior disc herniations effacing intrathecal sac L3-L4 through L5-S1 l evels seen on sagittal and axial images. [id number]-nd-[id number] facet arthropathy is seen in the mid to low er lumbar spine on axial images. Visualized abdomen is clear. There is partial visualization of cardiomegaly and dual-lead pacemaker. Calcification or surgical change at level of aortic valve is partially imaged. Visualized lungs are g rossly clear. IMPRESSION: No acute fracture or dislocation in the thoracic or lumbar spine.
== END | disposition home or self-care (01) ==
LOC: RADCTMAIN 14:10
PROVIDERS: ATTEND Family Medicine
DX: M54.5 Low back pain (principal); M54.6 Pain in thoracic spine
CPT/HCPCS: 72128; 72131

== ENCOUNTER 2020-04-01 08:38 | Day surgery (SDC) | payer OTHER ==
[2020-03-31 12:05] VITALS: BMI 29.8
[~2020-04-01 08:38] MED LIST: LACTATED RINGERS 1,000 ML IV SCH; LIDOCAINE 1% (10MG/ML) FOR IV START INTRADERMA PRN
[2020-04-01 09:00] VITALS: TEMP 97.8
[2020-04-01] MEDS ORDERED: LACTATED RINGERS 1,000 ML IV ONE (09:00)
[2020-04-01] MEDS ORDERED: PROPOFOL 10 MG/ML 20 ML VIAL IV ONE (09:22)
[2020-04-01] MEDS ORDERED: LIDOCAINE 1% INJ 10MG/ML (20 ML MDV) ONE (09:22)
[2020-04-01 09:53] VITALS: RESP 16
--- NOTE | 2020-04-01 09:57 | P.PCN ---
Date of Procedure: 04/01/20 Description of Procedure: BRIEF HISTORY: Patient is a 60-year-old male presenting for outpatient colonoscopy for evaluation of positive occult blood in stool. He denies any change in bowel habits, gross blood per rectum but did have stool testing which was positive for occult blood. No prior colonoscopy. PROCEDURE PERFORMED: Colonoscopy with polypectomy. PREOPERATIVE DIAGNOSIS: Positive occult blood in stool, no prior colonoscopy. ESTIMATED BLOOD LOSS: Minimal. IV sedation per Anesthesia. PROCEDURE: After informed consent was obtained, the patient, was brought into the endoscopy unit. IV sedation was administered by Anesthesia under continuous monitoring. Digital rectal examination was normal. Initially the Olympus CF-190 flexible video colonoscope was then inserted in the rectum, gradually advanced into the cecum without any difficulty. Careful examination was performed as the scope was gradually being withdrawn. Ileocecal valve and the appendiceal orifice were visualized and appeared normal. Prep was excellent. Mucosa of the cecum, ascending colon, transverse colon, descending colon, sigmoid colon, and rectum appeared normal. 2 polyps removed with cold snare polypectomy from the proximal transverse colon measuring 7 mm in size and a millimeters in size. A few scattered diverticula noted in the sigmoid colon. Retroflexion was performed in the rectum and no lesions were seen, low-grade internal hemorrhoids. The patient tolerated the procedure well. IMPRESSION: 2 flat transverse colon polyps removed. Polypectomy. Mild sigmoid diverticulosis. Internal hemorrhoids. RECOMMENDATIONS: Findings of this examination were discussed with the patient in the family. Okay to resume diet. Okay to resume medications. Would pathology from polypectomies. Recommend repeat colonoscopy in 5 years pending pathology from polypectomies.
[2020-04-01 10:05] VITALS: BP 138/83; PULSE 70
== END 2020-04-01 10:20 ==
LOC: ORWHC2ENDO 08:38
PROVIDERS: ATTEND Internal Medicine
DX: D12.3 Benign neoplasm of transverse colon (principal); K57.31 Diverticulosis of large intestine without perforation or abscess with bleeding; K64.8 Other hemorrhoids; K08.409 Partial loss of teeth, unspecified cause, unspecified class; I25.10 Atherosclerotic heart disease of native coronary artery without angina pectoris; I10 Essential (primary) hypertension; I44.2 Atrioventricular block, complete; F41.9 Anxiety disorder, unspecified; K21.9 Gastro-esophageal reflux disease without esophagitis; Z87.891 Personal history of nicotine dependence; Z79.1 Long term (current) use of non-steroidal anti-inflammatories (NSAID); Z79.899 Other long term (current) drug therapy; Z98.890 Other specified postprocedural states; Z95.0 Presence of cardiac pacemaker
CPT/HCPCS: 88305; 45385; J2001; J2704

== ENCOUNTER → 2020-05-18 | Outpatient (CLI) | payer OTHER ==
--- NOTE | 2020-05-19 00:53 | CT ---
EXAMINATION TYPE: CT chest wo con DATE OF EXAM: 05/18/2020 COMPARISON: 02/21/2020 HISTORY: SOB, personal hx of [place]bb[place] use CT DLP: 514 mGycm Automated exposure control for dose reduction was used. Images were obtained from the thoracic inlet to the diaphragm with no contrast. FINDINGS: The lungs are clear of infiltrate. There is no evidence of a pulmonary mass. The bronchi appear aneem l. There is no mediastinal adenopathy. There are no hilar masses. Heart size is fairly normal. There is pacemaker wires noted. There is left axillary pacemaker. There is some coronary artery calcification. Ascending aorta measures 3.6 cm. Thoracic spine is intact. There is no compression fracture. Sternum is intact. IMPRESSION: No significant abnormality. No adverse change compared to old exam. No suspicious pulmonary mass.
== END | disposition home or self-care (01) ==
LOC: RADCTMAIN 16:42
PROVIDERS: ATTEND Internal Medicine Pulmonary Disease
DX: R06.2 Wheezing (principal); R06.00 Dyspnea, unspecified; I11.0 Hypertensive heart disease with heart failure; I50.9 Heart failure, unspecified; E78.5 Hyperlipidemia, unspecified; G43.909 Migraine, unspecified, not intractable, without status migrainosus; Z72.0 Tobacco use
CPT/HCPCS: 71250

== ENCOUNTER 2020-08-17 15:20 | Emergency (ER) | payer OTHER ==
[2020-08-17 15:25] VITALS: BP 154/77; PULSE 74; RESP 2; TEMP 97.8
[2020-08-17] MEDS ORDERED: KETOROLAC 15 MG/ML 1 ML VIAL IM STA (16:03)
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
--- NOTE | 2020-08-17 16:27 | XR ---
EXAMINATION TYPE: XR lumbosacral spine min 4V DATE OF EXAM: 08/17/2020 CLINICAL HISTORY: Lower back pain. Increased lower back pain for one week, no known injury. TECHNIQUE: Frontal, lateral, and oblique images of the lumbar spine are obtained. COMPARISON: 03/10/2020 FINDINGS: There are 5 lumbar type vertebral bodies identified. The lumbar spine shows satisfactory alignment without evidence of acute fracture or dislocation. Vertebral body heights are normal. There is increased moderate disc space narrowing at L5-S1 with new grade 1 retrolisthesis of L5 on S1. The re is mild L4-L5 disc space narrowing, and multilevel degenerative spurring of the endplates worst at L5-S1 and T11-T12, which is not significantly changed versus 03/10/2020 comparison. The oblique imag es demonstrate facet arthropathy at L4-L5 and L5-S1 bilaterally. The overlying soft tissue appears u nremarkable. IMPRESSION: 1. No acute fracture. 2. Increased moderate disc space narrowing at L5-S1, with new grade 1 retrolisthesis of L5 on S1 not seen on 03/10/2020 comparison. 3. Additional chronic findings as above.
== END 2020-08-17 16:50 | disposition home or self-care (01) ==
LOC: EC 15:20
DX: S39.012A Strain of muscle, fascia and tendon of lower back, initial encounter (principal); M54.16 Radiculopathy, lumbar region; I10 Essential (primary) hypertension; I25.10 Atherosclerotic heart disease of native coronary artery without angina pectoris; J45.909 Unspecified asthma, uncomplicated; Z95.0 Presence of cardiac pacemaker; Z87.891 Personal history of nicotine dependence; X58.XXXA Exposure to other specified factors, initial encounter
CPT/HCPCS: 72110; 99283; 96372; J1885

== ENCOUNTER 2021-03-25 10:24 | Emergency (ER) | payer OTHER ==
[2021-03-25 10:32] VITALS: RESP 18; TEMP 98.1
[2021-03-25] MEDS ORDERED: SODIUM CHLORIDE 0.9% 1,000 ML IV STA (10:58)
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
[2021-03-25 11:44] LABS: Basophils % (A) 0 %; Eosinophils % (A) 1 %; HCT 44.5 % (39.0-53.0); HGB 15.5 gm/dL (13.0-17.5); Lymphocytes # (A) 1.5 k/uL (1.0-4.8); Lymphocytes % (A) 19 %; MCH 32.1 pg (25.0-35.0); MCHC 34.9 g/dL (31.0-37.0); MCV 91.9 fL (80.0-100.0); Mean Platelet Volume 8.8; Monocytes # (A) 0.8 k/uL (0-1.0); Monocytes % (A) 10 %; Neutrophils # (A) 5.2 k/uL (1.3-7.7); Neutrophils % (A) 68 %; Platelet Count 150 k/uL (150-450); RBC 4.84 m/uL (4.30-5.90); RDW 12.7 % (11.5-15.5); WBC 7.6 k/uL (3.8-10.6)
[2021-03-25 11:46] LABS: Appearance,Urine Clear (Clear); Bilirubin,Urine Negative (Negative); Blood,Urine Trace (Negative); Color,Urine Yellow; Glucose,Urine (UA) Negative (Negative); Ketones,Urine Negative (Negative); Leukocyte Esterase,Urine Negative (Negative); Mucus,Urine Occasional /hpf; Nitrite,Urine Negative (Negative); Protein,Urine Negative (Negative); RBC,Urine <1 /hpf (0-5); Specific Gravity,Urine 1.023 (1.001-1.035); Squamous Epithelial Cell,Urine <1 /hpf (0-4); Urobilinogen,Urine <2.0 mg/dL (<2.0); WBC,Urine 1 /hpf (0-5)
[2021-03-25 11:50] LABS: Prothrombin Time 10.4 sec (9.0-12.0)
--- NOTE | 2021-03-25 12:04 | CT ---
EXAMINATION TYPE: CT abdomen pelvis w con DATE OF EXAM: 03/25/2021 COMPARISON: None HISTORY: left abd pain for [address] DLP: 1559 mGycm CONTRAST: CT scan of the abdomen and pelvis is performed without Oral Contrast and with IV Contrast, patient in jected with 100 mL of Isovue 300. FINDINGS: LUNG BASES-: No visible nodule. No infiltrate. LIVER/GB: Gallbladder hydrops without evidence for wall cholelithiasis. Hepatic steatosis. No spac e occupying hepatic lesion. Biliary tree is of normal caliber. PANCREAS: No inflammation. No distinct mass. SPLEEN: No splenic enlargement. No lesion seen. ADRENALS: No nodule. No thickening. KIDNEYS/BLADDER: No hydronephrosis. No nephrolithiasis. No distinct renal mass. Urinary bladder g rossly unremarkable. BOWEL: Normal appendix. Normal bowel caliber. No inflammation. GENITAL ORGANS: No gross abnormality. LYMPH NODES: No greater than 1cm abdominal or pelvic lymph nodes are appreciated. AORTA: No significant abnormality. OSSEOUS STRUCTURES: No significant abnormality is seen. OTHER: No significant additional abnormality is seen. IMPRESSION: 1. Gallbladder hydrops without evidence for wall cholelithiasis. Hepatic steatosis
[2021-03-25 12:27] LABS: ALT 38 U/L (4-49); AST 38 U/L (17-59); African American GFR (CKD) >90 (>60 ml/min/1.73 sqM); Albumin 4.2 g/dL (3.5-5.0); Alkaline Phosphatase 73 U/L (38-126); Amylase 48 U/L (30-110); Anion Gap 9 mmol/L; Blood Urea Nitrogen 17 mg/dL (9-20); Carbon Dioxide 23 mmol/L (22-30); Chloride 105 mmol/L (98-107); Glucose 105 mg/dL (74-99); Lipase 55 U/L (23-300); Non-African American GFR(CKD) 78 (>60 ml/min/1.73 sqM); Sodium 137 mmol/L (137-145); Total Bilirubin 0.7 mg/dL (0.2-1.3); Total Protein 6.7 g/dL (6.3-8.2)
[2021-03-25 12:47] VITALS: BP 137/78; PULSE 90
== END 2021-03-25 14:11 | disposition home or self-care (01) ==
LOC: EC 10:24
DX: R10.31 Right lower quadrant pain (principal); I10 Essential (primary) hypertension; I25.10 Atherosclerotic heart disease of native coronary artery without angina pectoris; J45.909 Unspecified asthma, uncomplicated; F41.9 Anxiety disorder, unspecified; Z87.891 Personal history of nicotine dependence; Z79.51 Long term (current) use of inhaled steroids; Z79.899 Other long term (current) drug therapy
CPT/HCPCS: 36415; 80053; 82150; 83690; 85025; 85610; 85730; 81001; 74177; 99284; 96360; Q9967

== ENCOUNTER 2024-03-11 13:55 | Emergency (ER) | payer OTHER ==
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
[2024-03-11] MEDS: predniSONE 20 MG TAB PO STA (14:39)
[2024-03-11] MEDS: IPRATROPIUM-ALBUTEROL 3 ML NEB INHALATION STA (15:29)
[2024-03-11 16:08] VITALS: BP 138/78; PULSE 74; RESP 18; TEMP 97.7
== END 2024-03-11 16:08 | disposition home or self-care (01) ==
LOC: EC 13:55
DX: J45.901 Unspecified asthma with (acute) exacerbation (principal); Z87.891 Personal history of nicotine dependence
CPT/HCPCS: 93005; 99284; J7512